=== PATIENT | male | born 1950 | race Hispanic/Latino ===

== ENCOUNTER 2017-11-04 16:12 | Emergency (ER) | payer MEDICARE ==
[2017-11-04 16:32] VITALS: BMI 23.5
[2017-11-04 16:34] VITALS: TEMP 98.3; O2SAT 98
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
--- NOTE | 2017-11-04 18:08 | RAD ---
PROCEDURE: Radiographs of the right elbow. HISTORY: swelling COMPARISON: No prior. FINDINGS: BONES: There is an acute comminuted avulsion fracture of the olecranon process. Bone alignment and mineralization are normal. JOINTS: Normal. SOFT TISSUES: There is large periarticular soft tissue swelling. JOINT EFFUSION: There is a large joint effusion. OTHER FINDINGS: None. IMPRESSION: Acute comminuted avulsion fracture of the olecranon process with large joint effusion and large periarticular soft tissue swelling/ hematoma.
[2017-11-04 20:37] VITALS: BP 136/68; PULSE 80; RESP 18
== END 2017-11-04 19:45 | disposition home or self-care (01) ==
LOC: ED 16:12
DX: S52.021A Displaced fracture of olecranon process without intraarticular extension of right ulna, initial encounter for closed fracture (principal); W01.0XXA Fall on same level from slipping, tripping and stumbling without subsequent striking against object, initial encounter; Y93.55 Activity, bike riding

== ENCOUNTER 2017-11-11 06:09 | Day surgery (SDC) | payer MEDICARE ==
[2017-11-06 11:55] VITALS: BMI 23.0
[2017-11-11 06:36] VITALS: RESP 18
[2017-11-11] MEDS ORDERED: Succinylcholine 200 mg/10 ml Inj IV ONE (07:21)
[2017-11-11] MEDS ORDERED: Propofol 10 mg/ml Inj (20 ML) ONE ×2 (07:21→09:53)
[2017-11-11] MEDS ORDERED: Phenylephrine 10 mg/ml Inj ONE (07:28)
[2017-11-11] MEDS ORDERED: Midazolam 2 MG/2 ML VIAL ONE (07:33)
[2017-11-11] MEDS ORDERED: Bupivacaine 0.5% Inj(30mL) ONE (07:49)
[2017-11-11] MEDS ORDERED: Bupivacaine Liposomal Inj 20 ml ONE (07:49)
[2017-11-11] MEDS ORDERED: Desflurane Inhalation Anesthetic Liq (240 ml) ONE (08:25)
[2017-11-11] MEDS ORDERED: Neostigmine Methylsulfate 3mg/3ml Syringe IV ONE (08:28)
[2017-11-11] MEDS ORDERED: ePHEDrine 50 mg/ml Inj ONE (09:00)
[2017-11-11] MEDS ORDERED: Vancomycin 1 g Inj ONE (09:23)
[2017-11-11] MEDS ORDERED: Esmolol 100 mg/10ml Inj IV ONE (09:24)
--- NOTE | 2017-11-11 10:10 | PCM.SURG1 ---
Surgeon's Initial Post Op Note - Surgeon's Notes Surgeon: Dr. Lott Satellite Specialist: Padmini Carson, PGY-1 Pre-Operative Diagnosis: Right olcrenon comminuted fracture Operative Findings: See op report Post-Operative Diagnosis: Right olcrenon comminuted fracture Operation Performed: Right elbow ORIF with plate Specimen/Specimens Removed: None Estimated Blood Loss: EBL {In ML}: 10 Blood Products Given: N/A Drains Used: No Drains Post-Op Condition: Good Date of Surgery/Procedure: 11/11/17 Time of Surgery/Procedure: 10:10
[2017-11-11] MEDS ORDERED: Oxycodone/Acetaminophen 5/325 mg Tab PO PRN (10:11)
[2017-11-11] MEDS ORDERED: HYDROmorphone 0.5 mg/0.5 ml ISec IVP PRN (10:13)
[2017-11-11] MEDS ORDERED: Sodium Chloride 0.9% 1,000 ML IV SCH (10:15)
[2017-11-11] MEDS ORDERED: HYDROmorphone 0.5 mg/0.5 ml ISec ONE ×4 (10:30→11:28)
[2017-11-11] MEDS ORDERED: HYDROmorphone 0.5 mg/0.5 ml ISec IVP ONE ×4 (10:30→11:25)
--- NOTE | 2017-11-11 10:47 | RAD ---
PROCEDURE: Fluoroscopy up to 1 hour HISTORY: ORIF RT ELBOW COMPARISON: TECHNIQUE: 16.2 seconds of fluoro time. Cumulative dose 0.52 mGy. 4 images were submitted FINDINGS: Study shows a plate and screws fixating a displaced fracture of the olecranon. There is anatomic alignment. IMPRESSION: As above
[2017-11-11 11:52] VITALS: TEMP 98
[2017-11-11 13:50] VITALS: BP 154/79; PULSE 56; O2SAT 95
--- NOTE | 2017-11-11 14:39 | OP ---
PROCEDURE DATE: 11/11/2017 PREOPERATIVE DIAGNOSIS: Comminuted right olecranon fracture down the elbow, intraarticular, just proximal to the coronoid process. POSTOPERATIVE DIAGNOSIS: Comminuted right olecranon fracture down the elbow, intraarticular, just proximal to the coronoid process. PROCEDURE: Open reduction and internal fixation with a Biomet and DePuy contoured right olecranon plate utilizing four holes distally and contoured plates proximally, total of 8 screws. SURGEON: Ben Lott DO [employer] SURGEON: Dr. Vicki Orellana. TYPE OF ANESTHESIA: General endotracheal tube. DESCRIPTION OF PROCEDURE: The patient was taken to OR. Right elbow prepped and draped in sterile fashion, the fractured happened about a week ago. We made a vertical incision posterior to the olecranon going an inch above and 3 inches distal. Deep knife was used to go through the subcutaneous tissue and we explored the fracture pulling out the hematoma debris and any loose fragments. We held things together with a reduction clamp and put two temporary K-wires to hold it reduced while we contoured the plate over the dorsal surface of the proximal ulnar incorporating the plate proximal to the olecranon contouring the plate. The first screw that we actually used was a screw from posterior into the proximal fragment and then crossing the fracture fragment, this compressed the fracture and sucked down the plate to the bone. Then, the next screw was also a nonlocking screw to hold the plate to the bone. After that, we put two screws more proximal in the proximal fragment and 3 screws distal in the shaft. X-ray showed good position of the fracture and the hardware and the wound was irrigated with normal saline. We put some vancomycin deep in the wound and put some Marcaine into the skin subcutaneously. The patient had a wound closure, 0 Vicryl for the deep layer and the fascia to cover the plate with 2-0 Vicryl, subcutaneous tissue and skin with 3-0 nylon and combination of rao. The patient was placed in compression dressing and sent him home to come in the office in a week or 10 days. Ben Lott DO [email or web address]
== END 2017-11-11 15:40 | disposition home or self-care (01) ==
LOC: SDS 06:09
PROVIDERS: ATTEND Orthopaedic Surgery
DX: S52.021A Displaced fracture of olecranon process without intraarticular extension of right ulna, initial encounter for closed fracture (principal)
CPT/HCPCS: 24685; J0330; J0690; J1100; J1170; J2001; J2250; J2370; J2405; J2704; J2710; J2765; J3010; J7030